=== PATIENT | male | born 1995 | race Caucasian/White ===

== ENCOUNTER 2025-07-31 12:36 | Outpatient (AMB) | payer OTHER, SELFPAY ==
--- NOTE | 2025-07-31 12:51 | MHC.PC.OV ---
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 Intake Note: Jefferson is a new patient that presents with left shoulder pain Drier Required: No Accompanied by: Self / Same As Patient Allergies radioactive dye Allergy (Intermediate, Uncoded 07/31/25 12:56) Hives Medication List - Last Reconciled 07/31/25 by Mamadou Zabala MD No Known Home Meds Tobacco use date assessed: 07/31/25 Dental Screening Dental Screen Date: 07/31/25 Did you have a dental visit in the last 12 months?: Yes Did you have a dental problem in the last 6 months where you did not have access to dental care?: No Was dental information given to patient?: Patient has dentist HPI HPI Comments History of Present Illness Details History of Present Illness The patient is a 30 year old individual presenting for a wellness check and evaluation of chronic left shoulder pain. Chronic Left Shoulder Pain: The patient reports left shoulder pain that has been present for approximately three to four years, starting during a previous job. The patient believes the injury occurred while lifting excessive weight at the gym, at which time the patient felt a pop. The pain is described as a constant, dull ache rated at a 4 or 5 out of 10, with occasional episodes of sharp pain during normal activities. The pain does not radiate and is aggravated by lying on the left side and performing fast, wide movements with the arm. Arm exercises provide some temporary relief, but the pain always returns. The patient previously saw a nurse practitioner who recommended exercises to avoid physical therapy or surgery but did not follow up due to difficulty scheduling appointments and frustration with the healthcare system. Insomnia: The patient reports intermittent difficulty falling asleep. 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 The patient reports a family history of sleep issues, with the patient's mother and brother also experiencing them. Hematochezia: The patient reports occasionally noticing small amounts of blood on the toilet paper when wiping. This occurs intermittently, with the last episode maybe a month or two prior. The patient denies being constipated currently but had one episode in the past that required medication. Surgical History: - None reported. Medications: - The patient is not on any current medications. - The patient took medication for constipation previously, but this was a while ago. 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 - Alcohol Use: Drinks with friends a couple of times a month. - Tobacco/Drug Use: Smokes marijuana once or twice a year; no other drug use mentioned. - Sexual History: Not recently sexually active as the patient's girlfriend is currently in the [facility]. - Insurance: Reports a history of being on and off Truveris, which has created barriers to care. Family History: - Paternal history is unknown. - Maternal grandfather: Suspected alcohol abuse (undiagnosed) and prediabetes. - Mother: History of mental health issues including anxiety, has been hospitalized, and takes medication. Also has sleep issues. - Maternal aunt: History of mental health issues. - Maternal grandmother: Breast cancer. - Brother: History of sleep issues. Diagnostic Results: - Vital Signs: Noted to be good, with good blood pressure. Past Medical History - No significant past medical history reported. - History of constipation in the past requiring medication. Health Maintenance - Comprehensive baseline labs will be obtained, including a CBC, CMP, hemoglobin A1c, lipid panel, hepatitis B/C and HIV screen, syphilis screen, thyroid panel, urinalysis, vitamin B12, folate, and vitamin D. - The patient will follow up in two weeks to review all lab and imaging results. [facility] Medical History (Updated 07/31/25 @ 15:31 by Mamadou Zabala MD) Hematochezia Insomnia Left shoulder pain Family History (Updated 07/31/25 @ 12:59 by Ruben Donahue CMA) Maternal Grandfather Substance abuse Diabetes Mother FH: mental illness Maternal Aunt FH: mental illness Maternal Grandmother Breast cancer Social History (Updated 07/31/25 @ 13:00 by Ruben Donahue CMA) Housing: House Alcohol intake: current Comment: Ocasionally Patient Tobacco Use Status: Never used Tobacco e-Cigarette/Vaping Use: Never Used Second Hand Smoke Exposure: No Substance Use Type: Marijuana service: No Current occupational status: employed 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 1. Little interest or pleasure in doing things: not at all 2. Feeling down, depressed, or hopeless: not at all 3. Trouble falling or staying asleep, or sleeping too much: several days 4. Feeling tired or having little energy: not at all 5. Poor appetite or overeating: not at all 6. Feeling bad about yourself - or that you are a failure or have let yourself or your family down: not at all 7. Trouble concentrating on things, such as reading the newspaper or watching television: not at all 8. Moving or speaking so slowly that other people could have noticed. Or the opposite - being so fidgety or restless that you have been moving around a lot more than usual: not at all 9. Thoughts that you would be better off or of hurting yourself in some way: not at all Total score: 1 Depression Screening Interpretation: Negative Depression Screening Done: Yes 88340 - PHQ-9 Billing: Yes Source: Developed by Drs. Eulogio Jerry, Malissa More, Tyrone Guajardo and colleagues, with an educational joao from [employer]. Thrive Questionnaire Date Thrive assessed: 07/31/25 I am a: Patient What is your living situation today?: I have a steady place to live Within the past 12 months, did the food you bought not last and you didn't have the money to get more?: Never true Within the past 12 months, did you worry whether your food would run out before you got money to buy more?: Never true Do you have trouble paying for medicines?: No Do you have trouble getting transportation to medical appointments?: No Do you have trouble paying your heating and electricity bill?: No Do you have trouble taking care of your child, family member or friend?: No Are you currently unemployed and looking for a job?: No Are you interested in more education?: Yes Please select the resources that you would like help with: None Currently or been in a relationship where the following occur: No concerns reported THRIVE Score: 0 AUDIT C Alcohol Use Questionnaire (AUDIT-C) 1. How often do you have a drink containing alcohol?: Monthly or less 2. How many drinks containing alcohol do you have on a typical day when you are drinking?: 1 or 2 3. How often do you have six or more drinks on one occasion?: Never Total Score: 1 LORI-7 AMB Questionnaire LORI-7 Date LORI - 7 assessed: 07/31/25 Feeling nervous, anxious, or on edge: 1 = Several days Not being able to stop or control worryin = Several days Worrying too much about different things: 1 = Several days Trouble relaxin = Not at all Being so restless that it is hard to sit still: 0 = Not at all Becoming easily annoyed or irritable: 0 = Not at all Feeling afraid as if something awful might happen: 0 = Not at all Total LORI-7 score (0-4 normal; 5-9 mild; 10-14 moderate; 15-21 severe): 3 Source: Developed by Drs. Eulogio Jerry, Malissa More, Tyrone Guajardo and colleagues, with an educational joao from [employer]. Review of Systems Narrative Review of Systems - Musculoskeletal: Reports chronic, dull left shoulder pain (4-5/10), aggravated by lying on the side and fast movements, with intermittent sharp pains. - Neurological: Denies radiating pain from the shoulder. - Gastrointestinal: Reports intermittent small amounts of blood on toilet paper when wiping; denies current constipation. - Sleep: Reports intermittent difficulty falling asleep. - Psychiatric: Reports feeling stressed due to a new job. 10-point ROS reviewed and negative except as noted in HPI Physical exam (Primary Care) Vital Signs: Last Vital Signs Temp 98.2 F 07/31/25 13:00 Pulse 79 07/31/25 13:00 Resp 18 07/31/25 13:00 BP 127/86 07/31/25 13:00 Pulse Ox 99 07/31/25 13:00 Oxygen Delivery Method Room Air 07/31/25 13:00 BMI result Body Mass Index 25.8 Tobacco/Smoking Status: Tobacco use Status Tobacco use date assessed 07/31/25 07/31/25 13:02 Patient Tobacco Use Status Never used Tobacco 07/31/25 13:02 e-Cigarette/Vaping Use Never Used 07/31/25 13:02 PHQ-9: PHQ-9 Score PHQ-9: Total score 1 07/31/25 13:02 Depression Screening Interpretation: Negative Thrive Assessment: Date of Thrive Assessment Date Thrive assessed 07/31/25 07/31/25 12:53 Currently or been in a relationship where the following occur: No concerns reported Narrative Physical Exam General: Well-appearing, in no acute distress. Vital signs: Blood pressure looks good, vital signs look good. HEENT: Normocephalic, atraumatic. PERRLA, EOMI. Conjunctiva clear, sclera anicteric. Oropharynx clear, mucous membranes moist. TMs intact bilaterally. Neck: Supple, no lymphadenopathy, no thyromegaly, no JVD or carotid bruits. Cardiovascular: RRR, normal S1/S2, no murmurs, rubs, or gallops. Peripheral pulses 2+ and symmetric. No edema. Respiratory: Lungs clear to auscultation bilaterally, no wheezes, rales, or rhonchi. Normal effort. Abdomen: Soft, non-tender, non-distended. Normoactive bowel sounds. No hepatosplenomegaly, no masses. MSK: Full range of motion, no joint swelling or deformity. Normal gait. Left shoulder pain reported, with a history of discomfort for 3-4 years, exacerbated by laying on the side and fast, wide movements. Skin: Warm, dry, intact. No rashes, lesions, or pallor. Neuro: Alert and oriented x3. Cranial nerves II-XII intact. Strength 5/5 throughout. Sensation intact. Reflexes 2+ symmetric. Normal coordination and gait. Psych: Appropriate mood and affect. Normal judgment and insight. Reports occasional sleep disturbances, possibly stress-related. Coding Level of Care Code New Pt Level 4 (57007) Diagnoses Left shoulder pain M25.512 Insomnia G47.00 Hematochezia K92.1 Additional Codes PHQ-9 - 49378 - PHQ-9 Billing: Yes ([id number]) Assessment & Plan Assessment & Plan (1) Left shoulder pain: Code(s): M25.512 - Pain in left shoulder Category: Medical (2) Insomnia: Code(s): G47.00 - Insomnia, unspecified Category: Medical (3) Hematochezia: Code(s): K92.1 - Melena Category: Medical Plan Consent The plan for baseline blood work, a left shoulder X-ray, and a referral to physical therapy was discussed with the patient. The patient verbally agreed to the proposed diagnostic and therapeutic plan. Patient was informed and verbally consented to the use of an ambient scribe for clinic note documentation during this visit. Plan 1. Chronic Left Shoulder Pain - An X-ray of the left shoulder will be ordered to assess for underlying pathology. - A referral will be placed for physical therapy. 2. Hematochezia - The likely differential includes hemorrhoids or an anal fissure. - The patient was instructed to monitor for recurrence and to report if it happens again. 3. Insomnia - The patient does not feel this is a significant issue at present. - The current plan is to monitor symptoms. Discussion Notes I had a detailed discussion with the patient regarding the plan for this initial visit. I explained the rationale for ordering comprehensive baseline labs, which include a CBC, CMP to check liver and kidney function, a hemoglobin A1c to screen for diabetes, a lipid panel, and screenings for infectious diseases such as hepatitis, HIV, and syphilis. For the chronic shoulder pain, I explained that an X-ray would be ordered and a referral made to physical therapy. I informed the patient that the imaging department would call to schedule the X-ray and to contact them if no call is received within one to two weeks. Regarding the intermittent blood on the toilet tissue, I explained that this is likely from hemorrhoids or a fissure and instructed the patient to inform me if it recurs. We agreed on a follow-up appointment in two weeks to go over all the results. Patient Instructions - Please go to the lab to have your blood drawn today. - An X-ray of your left shoulder has been ordered. The radiology department will call you to schedule it. If you do not hear from them within 1-2 weeks, please call them to follow up. - A referral has been made for physical therapy. - If you notice blood on the toilet paper again, please let me know. - Please schedule a follow-up appointment in two weeks to review your results. Medical Decision Making The patient is a 30-year-old individual presenting for a new patient wellness visit and evaluation of chronic left shoulder pain. The primary complaint of left shoulder pain, ongoing for 3-4 years since a possible lifting injury, is suspicious for a chronic musculoskeletal issue, such as a rotator cuff tendinopathy or tear, given the history of a pop and pain with specific movements. An initial X-ray is warranted to rule out osseous abnormalities, and a physical therapy referral is appropriate for conservative management. The patient also reports intermittent hematochezia, described as small amounts of blood on toilet paper. Given the intermittent nature and lack of associated symptoms like significant pain or constipation, this is most likely from external hemorrhoids or a minor anal fissure. The management plan is watchful waiting with patient education to report recurrence. As this is an initial comprehensive visit, baseline health screening labs are indicated. This includes a CBC, CMP, lipid panel, and screenings for common infectious diseases. A hemoglobin A1c is particularly relevant given the family history of prediabetes. A follow-up in two weeks will be critical to review all diagnostic results and establish an ongoing plan of care. Total Time Statement 30 MIN Total time spent caring for the patient today includes pre-visit chart review, documentation, review of laboratory and diagnostic imaging results, medication reconciliation, medically necessary evaluation, counseling on diagnoses, care coordination, ordering appropriate tests and medications, review of tests performed by other providers, reporting test results to the patient, and communication with other healthcare providers. Orders: Orders Complete Blood Count Auto Diff Today Z13.9 - Encounter for screening, unspecified Hepatitis B Surface Antigen Today Z13.9 - Encounter for screening, unspecified Hepatitis C Antibody Today Z13.9 - Encounter for screening, unspecified HIV Ab/Ag Today Z13.9 - Encounter for screening, unspecified Vitamin B12 and Folate Today Z13.9 - Encounter for screening, unspecified Hemoglobin A1c Today Z13.9 - Encounter for screening, unspecified Vitamin D 1,25 dihydroxy Today Z13.9 - Encounter for screening, unspecified Hepatitis B Surface Antibody Today Z13.9 - Encounter for screening, unspecified Syphilis Screen Today Z13.9 - Encounter for screening, unspecified Comprehensive Met. Panel Today Z13.9 - Encounter for screening, unspecified TSH reflex Free T4 Today Z13.9 - Encounter for screening, unspecified UA CC w/rflx Micro + Cult Today Z13.9 - Encounter for screening, unspecified Lipid Panel Today Z13.9 - Encounter for screening, unspecified Magnesium Today Z13.9 - Encounter for screening, unspecified PT Evaluation and Treatment Today M25.512 - Pain in left shoulder XR shoulder LT min 2V Today M25.512 - Pain in left shoulder
[2025-07-31 13:00] VITALS: BP 127/86; PULSE 79; RESP 18; TEMP 36.8; O2SAT 99; BMI 25.8
--- OUTSIDE RECORDS SUMMARY | 2025-07-31 14:32 | XMS_ITS | Clinical Summary ---
Author Organization [facility] Address [address] [place] [id number] Phone Care Team Providers Care Brusher Machine Name Role Phone Unavailable Primary Care Provider Unavailabl e Allergies No known active allergies Medications No known medications Active Problems Problem Noted Date Diagnosed Date Flat foot 09/11/2016 Sensorineural hearing loss (SNHL) of both ears 0 10/01/2010 Overview (09/08/2017): Mild stable mid range hearing loss-- previously followed at [facility]-- has not been seen in a few years-- not intervention needed. Resolved Problems Problem Noted Date Diagnosed Date Resolved Date Pain in joint, shoulder region 09/11/2016 09/08/2017 Immunizations Immunization Administration Dates Next Due DTaP / HiB / IPV 01/09/2000,07/17/1996 DTaP 5 1995,1995,1995 H1N1 05/13/2009 HPV Vaccine 9 Valent 09/11/2016 HPV, Quadrivalent 08/24/2014,08/02/2013 Hep B, ped/adol 1995,1995,1995 Hib (PRP-T) 04/17/1996, 5,1995,03/19 IPV 01/09/2000 Influenza 09/05/2013 Influenza, injectable, quadrivalent 09/11/2016 Influenza, injectable, triva lent, preservative free 08/24/2014 Influenza, intranasal, trivalent 016,06/13/2013,07/11/2012,05/29,05/20/2010 MMR 01/09/2000,01/07/1999,04/17/1996 Meningococcal Conj (Menactra) MCV4P 05/29/2011,0 04/21/2007 OPV 1995,1995,1995 PPD Test 1995 Td (adult) (MBL), 2 Lf tetan us toxoid, PF, adsorbed 09/06/2015 Tdap 04/20/2006 Varicella 04/05/2009,01/14/1996 Social History Tobacco Use Types Packs/Day Years Used Date Smoking Tobacco: Never Comments:Never Smoker Sex and Gender Information Value Date Recorded Sex Assigned at Not on file Legal Sex Male 4:11 PM EST Gender Identity Not on file Sexual Orientation Not on file Last Filed Vital Signs Vital Sign Reading Time Taken Comments Blood Pressure 98/70 09/08/2017 1:52 PM EST Pulse - - Temperature 36.8 C (98.2 F) 09/13/2014 2:20 PM EST Respiratory Rate - - Oxygen Saturation 99% 09/13/2014 2:26 PM EST Inhaled Oxygen Concentration - - Weight 72.6 kg (160 lb) 09/08/2017 1:52 PM EST Height 172.7 cm (5' 8 ) 09/08/2017 1:52 PM EST Body Mass Index 24.33 09/08/2017 1:52 PM EST Plan of Treatment Health Maintenance Due Date Last Done Comments Influenza Vaccines (#1) 2025 09/11/19 17, 09/06/2015, 08/24/2014, Additional history exists COVID-19 Vaccine ( season) 2025 DTaP,Tdap,and Td Vaccines (8 - Td or Tdap) 09/06/2025 09/06/2015, 04/20/2006, 01/09/2000, Additional history exists Hepatitis B Vaccines Completed 1995, 1995, 1995 HIB Vaccines Completed 01/09/2000, 06/30, 04/17/1996, Additional history exists IPV Vaccines Completed 01/09/2000, 12/28, 07/17/1996, Additional history exists MMR Vaccines Completed 01/09/2000, 12/28, 04/17/1996 Varicella Vaccines Completed 04/05/2009, 01/14/1996 Meningococcal Vaccine Completed 05/29/2011, 007 HPV Vaccines Completed 09/11/2016, 07/31, 08/02/2013 Hepatitis A Vaccines Aged Out No long er eligible based on patient's age to complete this topic Men B Vaccine Aged Out No longer elig ible based on patient's age to complete this topic Pneumococcal Vaccine Aged Out No long er eligible based on patient's age to complete this topic Insurance [facility] PPO
--- OUTSIDE RECORDS SUMMARY | 2025-07-31 14:32 | XMS_ITS | Encounter Summary ---
Author Organization [facility] Address [address] [place] [id number] Phone Care Team Providers Care Power Transformer Inspector Name Role Phone Mango eTna MD Primary Care Provider Valentino tanner Encounter Details Date Type Department Care Team (Late st Contact Info) Description 08/02/2013 Nurse Only [facility] [place] [id number] Social History Tobacco Use Types Packs/Day Years Used Date Smoking Tobacco: Never Comments:Never Smoker Sex and Gender Information Value Date Recorded Sex Assigned at Not on file Legal Sex Male 4:11 PM EST Gender Identity Not on file Sexual Orientation Not on file documented as of this encounter Nursing Notes * UNKNOWN, HISTORICAL - 08/02/2013 10:20 AM EST [place] 1995 NURSE NOTE/VERBAL ORDERS Office/Outpatient Visit Visit Date: Aug 02, 2013 10:20 am Provider: Priscila Cody LPN (Flush Tester: Magali Fox MD) Location: [facility]. ECTIVE: CC: Patient enters alone He is here for immunization. HPI: There are no signs or symptoms of illness.. Denies any problems with previous vaccinations. PMH/FMH/SH: Past Medical History: HM since 2009 Mild hearing loss ( mid range) 05/09 Overweight: dx'd in 2010; CURRENT MEDICAL PROVIDERS: Audiology: [facility] Social History: [employer] freshman - fall 2012 Dad now living in [place]. Family members: Parent: Denver Wasserman Parent: Bhumi Wasserman, mother Siblings: Hadrian - 01/06/1996 - Parents' Marital Status: . He lives with his mother and has occasional contact with his father. Hobbies and recreational interests include sports ( basketball, soccer ). Tobacco/Alcohol/Supplements: ... Last Reviewed on 07/11/2012 2:35:40 PM by Shelley Donovan Tobacco: He has never smoked. Communicable Diseases (eg STDs): Cholesterol: (146) 06/16/13 Hgb: (13.9) 12/04/11 Hct: (40.7) 12/04/11 Current Problems: Acne Overweight Sensorineural hearing loss, bilateral Current Medications: Last Reviewed on 06/13/2013 9:53:19 AM by Priscila Cody Clinda-Derm 1% Topical Solution Apply thin film to affected once a day in the morning. Tretinoin 0.025% Cream Apply thin film at bedtime to clean, dry skin. Start every other day. ASSESSMENT: V70.0 HM: Immunizations only ORDERS: Procedures Ordered: Human Papilloma virus (HPV) vaccine, types 6, 11, 16, 18 (quadrivalent), 3 dose schedule, for intram (In-House) PLAN: HM: Immunizations only IMMUNIZATIONS: Gardisil (HPV) was given at todays visit. Informed Consent: ( Given Verbal ) Return in 4-8 weeks for next update. Patient tolerated injection(s) well. Left office in good condition. Orders: Human Papilloma virus (HPV) vaccine, types 6, 11, 16, 18 (quadrivalent), 3 dose schedule, for intram (In-House) Patient Recommendations: For HM: Immunizations only: Immunizations for Todays isit; ^ HPV (Given) CHARGE CAPTURE: Primary Diagnosis: V70.0 HM: Immunizations only Orders: [id number] Human Papilloma virus (HPV) vaccine, types 6, 11, 16, 18 (quadrivalent), 3 dose schedule, forintram (In-House) documented in this encounter Plan of Treatment Not on file documented as of this encounter Visit Diagnoses Not on filedocumented in this encounter Care Teams Power Transformer Inspector Relationship Specialty Start Date End Date Mango Tena MD PCP - General 10/19/16 03/02/19 documented as of this encounter
--- OUTSIDE RECORDS SUMMARY | 2025-07-31 14:32 | XMS_ITS | Encounter Summary ---
Author Organization [facility] Address [address] [place] [address] Phone Care Team Providers Care Auto Service Station Attendant Name Role Phone Mango Tena MD Primary Care Provider Valentino tanner Encounter Details Date Type Department Care Team (Late st Contact Info) Description 09/05/2013 Nurse Only [place] [facility], [address] [place] [address] Social History Tobacco Use Types Packs/Day Years Used Date Smoking Tobacco: Never Comments:Never Smoker Sex and Gender Information Value Date Recorded Sex Assigned at Not on file Legal Sex Male 4:11 PM EST Gender Identity Not on file Sexual Orientation Not on file documented as of this encounter Nursing Notes * UNKNOWN, HISTORICAL - 09/05/2013 3:36 PM EST [place] 1995 NURSE NOTE/VERBAL ORDERS Office/Outpatient Visit Visit Date: Sep 05, 2013 03:36 pm Provider: Priscila Cody LPN (Displayer: Nicole Ryan MD) Location: [facility]. ECTIVE: CC: He is here for the Flu Clinic. HPI: No known chronic health conditions. Fever or illness is not present today. No trouble breathing or hives after eating eggs He has not had a reaction to the flu vaccine or other immunization. Flu vaccine VIS was given today.(interim 03/24/13) There were no questions or concerns voiced at today's visit. PMH/FMH/SH: Past Medical History: HM since 2009 Mild hearing loss ( mid range) 9/10 Overweight: dx'd in 2010; CURRENT MEDICAL PROVIDERS: Audiology: [facility] Judge Social History: [employer] freshman - fall 2012 Dad now living in [place]. Family members: Parent: Denver Wasserman Parent: Bhumi Wasserman, mother Siblings: Camelia STEINBERG 01/06/1996 - Parents' Marital Status: . He [...] affected once a day in the morning. OBJECTIVE: Exams: GENERAL APPEARANCE: Alert, active, looks well, mood appropriate ASSESSMENT: V04.81 Flu Clinic ORDERS: Procedures Ordered: Flu Vaccine (In-House) Immunization administration (includes percutaneous, intradermal, subcutaneous or intramuscular injec (In-House) PLAN: Flu Clinic Influenza vaccine > 3 yr given No contraindications noted for flu vaccines. Tolerated well, left office in good condition. Orders: Flu Vaccine (In-House) Immunization administration (includes percutaneous, intradermal, subcutaneous or intramuscular injec (In-House) Patient Recommendations: For Flu Clinic: Influenza (Given) CHARGE CAPTURE: Primary Diagnosis: V04.81 Flu Clinic Orders: [id number] Flu Vaccine (In-House) 52143 Immunization administration (includes percutaneous, intradermal, subcutaneous or intramuscular injec (In-House) documented in this encounter Plan of Treatment Not on file documented as of this encounter Visit Diagnoses Not on filedocumented in this encounter Care Teams Auto Service Station Attendant Relationship Specialty Start Date End Date Mango Tena MD PCP - General 10/19/16 03/02/19 documented as of this encounter
== END 2025-07-31 13:18 | disposition home or self-care (01) ==
LOC: HO.HMCFMS 12:36
PROVIDERS: PCP Student in an Organized Health Care Education/Training Program; Visit Provider Student in an Organized Health Care Education/Training Program
DX: M25.512 Pain in left shoulder (principal); G47.00 Insomnia, unspecified; K92.1 Melena

== ENCOUNTER 2025-07-31 12:36 | Outpatient (REF) | payer OTHER, SELFPAY ==
--- OUTSIDE RECORDS SUMMARY | 2025-07-31 15:27 | XMS_ITS | Clinical Summary ---
Author Organization [facility] [employer] [facility] Address [address] [facility] [place] [address] Care Team Providers Care Industrial Tech Instructor Name Role Phone Unavailable Primary Care Provider Unavailabl e Immunizations Immunization Administration Dates Next Due Flulaval Trivalent Prefilled Syringe (18mos-18yr s) 06/17/2025 Pfizer Cominarty Covid-19 SDV (12+ yrs) 09/10/19 24 Social History Tobacco Use Types Packs/Day Years Used Date Smoking Tobacco: Never Assessed Sex and Gender Information Value Date Recorded Sex Assigned at Not on file Legal Sex Male 1:56 PM EST Gender Identity Not on file Sexual Orientation Not on file Plan of Treatment Health Maintenance Due Date Last Done Comments Depression: Screening Annually using PHQ-2/9 in Adults 18 yrs or above (or HM Modifier)([facility]) 2013 Hepatitis C Virus Infection in Adolescents and Adults: Screening (or Modifier) ([facility]) 2013 SDVT Screening Reminder: Annually for all adults ([facility]) 2013 Tobacco Smoking Cessation: i n Adults excluding Women: Behavioral and Pharmacotherapy Interventions ([facility]) 2013 COVID-19 Vaccine Screening: Initial Series and Booster Status ([facility]) (2 - 2024- season) 2025 09/10/2023 DTaP/Tdap/Td Vaccines ([facility]) (8 - Td or Tdap) 09/06/2025 09/06/2015, 04/20/2006, 01/09/2000, Additional history exists Zoster/Shingles Vaccine Series Screening: Adults aged 18+ yrs (or HM Modifiers)([facility]) (1 of 2) 2045 04/05/2009, 01/14/1996 Flu Vaccination: Yearly for ages 18mos through 64 years (or Modifier)([facility]) Completed 06/17/2025, 09/05/2013 Pneumococcal Vaccination Screening: Pts 0-19 & 19-49 yrs of age ([facility]) Aged Out No longer eligible based on patient's age to complete this topic Medical Devices Not on file [place] [id number]
[2025-07-31 17:49] LABS: Appearance Urine Clear; Glucose Urine UA Negative (Negative); PH 6.0 (5.0-9.0); Specific Gravity - Urine 1.025 (1.005-1.025)
[2025-07-31 17:52] LABS: MANUAL DIFF FLAG NO
[2025-07-31 18:09] LABS: Hematocrit 44.7 % (42.0-52.0); Hemoglobin 14.8 g/dl (14.0-18.0); Imm Gran Abs Auto 0.03 X10*3/uL (0.00-0.03); Imm Gran Pct Auto 0.4 % (0.0-0.4); Lymphocytes Absolute Auto 2.0 X10*3/uL (1.2-4.9); Mean Corpuscular HGB Conc 33.1 g/dl (31.0-36.0); Mean Corpuscular Hemoglobin 27.3 pg (27.0-33.0); Mean Corpuscular Volume 82.3 fL (80.0-98.0); NRBC Abs Auto 0.000 X10*3/uL (0.0-0.012); NRBC Pct Auto 0.0 /100WBC (0.0-0.2); Platelet Count 283 X10*3/uL (160-400); Red Blood Count 5.43 X10*6/uL (4.60-5.80); White Blood Count 8.1 X10*3/uL (4.8-10.8)
[2025-07-31 18:44] LABS: Alanine Aminotransferase 56 U/L (0-40); Albumin Level 5.1 g/dL (3.5-5.0); Alkaline Phosphatase 102 U/L (39-117); Anion Gap 15 (12-20); Aspartate Amino Transferase 36 U/L (5-37); Blood Urea Nitrogen 14 mg/dL (9-16); Calcium 9.6 mg/dL (8.4-10.2); Carbon Dioxide 25 mmol/L (22-29); Chloride 105 mmol/L (96-108); Cholesterol 201 mg/dL (<200); Estimated Glomerular Filt Rate > 60; HDL Cholesterol 66 mg/dL (>40); Magnesium 1.9 mg/dL (1.6-2.6); Potassium 3.8 mmol/L (3.3-5.1); Sodium 141 mmol/L (135-145); Total Protein 8.5 g/dL (6.5-8.0); Triglycerides 55 mg/dL (<150)
[2025-07-31 18:57] LABS: Folate 12.3 ng/mL (> or = 4.0); Vitamin B12 867 pg/mL (200-900)
[2025-08-01 04:49] LABS: Syphilis Screen Nonreactive (Nonreactive)
[2025-08-01 05:23] LABS: HBS Num1 18.34 mIU/mL (0-7.99); HBsAGNum1 0.40 S/CO (0.00-0.99); HIV Num 1 0.06 S/CO (0.00-0.99); Hepatitis B Surface Antigen Negative (Negative); ~HepC Num1 0.10 S/CO (0.00-0.79); ~Hepatitis B Surface Antibody REACTIVE (Nonreactive); ~Hepatitis C Antibody Nonreactive (Nonreactive)
[2025-08-05 14:13] LABS: VITAMIN D (1,25 OH) D3 50 pg/mL; Vit D (1,25-Dihydroxy) Total 50 pg/mL (18-72); Vitamin D (1,25 OH) D2 <8 pg/mL
== END 2025-07-31 12:37 | disposition home or self-care (01) ==
LOC: HO.HKASLDS 12:36
PROVIDERS: PCP Student in an Organized Health Care Education/Training Program; Visit Provider Student in an Organized Health Care Education/Training Program
DX: M25.512 Pain in left shoulder (principal); Z13.31 Encounter for screening for depression; Z13.39 Encounter for screening examination for other mental health and behavioral disorders; G47.00 Insomnia, unspecified; K92.1 Melena; Z13.1 Encounter for screening for diabetes mellitus; Z13.6 Encounter for screening for cardiovascular disorders
CPT/HCPCS: 36415; 80053; 80061; 81003; 82607; 82652; 82746; 83036; 83735; 84443; 85025; 86706; 86780; 86803; 87340; 87389; 96127

== ENCOUNTER 2025-08-14 15:41 | Outpatient (AMB) | payer OTHER, SELFPAY ==
--- NOTE | 2025-08-14 15:44 | A.OFFPC_ITS ---
Vital Signs 08/14/25 15:47 Height 5 ft 9.5 in Weight 181 lb 4 oz BMI 26.4 BP 135/81 Blood Pressure Location Rt brachial Position Sitting Respiration 17 Pulse 95 Pulse Source Pulse Oximeter Temp 97.5 F Temp Source Oral Pulse Oximetry (%) 97 Oxygen Delivery Method Room Air Intake Visit Reasons: 2 wk lab review Intake Note: Patient present for lab review. Criminal Court Judge Required: No Accompanied by: Self / Same As Patient Allergies radioactive dye Allergy (Intermediate, Uncoded 08/14/25 15:46) Hives Medication List - Last Reconciled 08/14/25 by Mamadou Zabala MD No Known Home Meds Tobacco use date assessed: 07/31/25 Dental Screening Dental Screen Date: 07/31/25 HPI HPI Comments History of Present Illness Details History of Present Illness The patient is a 30 year old male presenting with a follow-up visit to review lab results. Hypercholesterolemia: Lab results show a total cholesterol of 201, which was a non-fasting sample. The LDL cholesterol is 124, which would still be slightly over 100 after adjusting for the non-fasting state. The patient's HDL is high at 66, which is a positive finding. He reports eating a lot of fast food recently due to an inconsistent work schedule, and acknowledges this diet contains a lot of cheese. Elevated liver enzymes: Lab results show an elevated ALT of 56, with a cutoff of 40. This elevation may be correlated with his high cholesterol, suggesting possible fat storage in the liver. Social History: - Nutrition: The patient states he has b een eating a lot of fast food recently, which often contains cheese. - Exercise: He reports finding it hard t o go to the gym. - Employment: The patient has an inconsi stent work schedule. - Education: He is planning to start [employer] for a DO program in [place] in March. Diagnostic Results: - Complete Blood Count: White blood cell s, red blood cells, hemoglobin, hematocrit, and platelets are normal. - Comprehensive Metabolic Panel: Sodium, potassium, chloride, kidney function, calcium, and magnesium are normal. - Glucose: Random glucose and hemoglobin A1c are normal; patient is not prediabetic or diabetic. - Liver Function Test: ALT is elevated a t 56 (cutoff is 40). - Lipid Panel (non-fasting): Total alanna sterol is 201 (noted to be non-fasting), LDL is 124, and HDL is 66. - Vitamins: Vitamin B12 and Vitamin D le vels are good. - Thyroid: Thyroid function is normal. - Folate: Folate level is good. - Urinalysis: Normal. - Infectious Disease Screen: Syphilis, h epatitis B, hepatitis C, and HIV are negative. Past Medical History Health Maintenance - Screening labs results were reviewed. - Discussed lifestyle changes for hyperc holesterolemia, including dietary modifications such as reducing intake of eggs and cheese, and improving diet from fast food. - Recommended follow-up in six months. [facility] Medical History (Updated 08/14/25 @ 16:38 by Mamadou Zabala MD) Overweight (BMI 25.0-29.9) Elevated liver enzymes Hypercholesterolemia Hematochezia Insomnia Left shoulder pain Family History Maternal Grandfather Substance abuse Diabetes Mother FH: mental illness Maternal Aunt FH: mental illness Maternal Grandmother Breast cancer Social History Housing: House Alcohol intake: current Comment: Ocasionally Patient Tobacco Use Status: Never used Tobacco e-Cigarette/Vaping Use: Never Used Second Hand Smoke Exposure: No Substance Use Type: Marijuana service: No Current occupational status: employed 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 [employer] Current occupational exposures/hazards: No Cognitive needs: No Hearing needs: No Vision needs: No Questionnaire Thrive Questionnaire Date Thrive assessed: 07/31/25 I am a: Patient What is your living situation today?: I have a steady place to live Within the past 12 months, did the food you bought not last and you didn't have the money to get more?: Never true Within the past 12 months, did you worry whether your food would run out before you got money to buy more?: Never true Do you have trouble paying for medicines?: No Do you have trouble getting transportation to medical appointments?: No Do you have trouble paying your heating and electricity bill?: No Do you have trouble taking care of your child, family member or friend?: No Do you have trouble with day-to-day activities such as bathing, preparing meals, shopping, managing finances, etc.?: No Are you currently unemployed and looking for a job?: No Are you interested in more education?: Yes Please select the resources that you would like help with: None Currently or been in a relationship where the following occur: No concerns reported THRIVE Score: 0 LORI-7 AMB Questionnaire LORI-7 Date LORI - 7 assessed: 07/31/25 Source: Developed by Drs. Eulogio Jerry, Malissa More, Tyrone Guajardo and colleagues, with an educational joao from [employer]. Review of Systems Narrative Review of Systems - General: Reports feeling pretty good. 10-point ROS reviewed and negative except as noted in HPI Physical exam (Primary Care) Vital Signs: Last Vital Signs Temp 97.5 F 08/14/25 15:47 Pulse 95 08/14/25 15:47 Resp 17 08/14/25 15:47 BP 135/81 08/14/25 15:47 Pulse Ox 97 08/14/25 15:47 Oxygen Delivery Method Room Air 08/14/25 15:47 BMI result Body Mass Index 26.4 Tobacco/Smoking Status: Tobacco use Status Tobacco use date assessed 07/31/25 08/14/25 15:44 Patient Tobacco Use Status Never used Tobacco 08/14/25 15:44 e-Cigarette/Vaping Use Never Used 08/14/25 15:44 Thrive Assessment: Date of Thrive Assessment Date Thrive assessed 07/31/25 08/14/25 15:44 Currently or been in a relationship where the following occur: No concerns reported Narrative Physical Exam General: Well-appearing, in no acute distress. Vital signs: Within normal limits. HEENT: Normocephalic, atraumatic. PERRLA, EOMI. Conjunctiva clear, sclera anicteric. Oropharynx clear, mucous membranes moist. TMs intact bilaterally. Neck: Supple, no lymphadenopathy, no thyromegaly, no JVD or carotid bruits. Cardiovascular: RRR, normal S1/S2, no murmurs, rubs, or gallops. Peripheral pulses 2+ and symmetric. No edema. Respiratory: Lungs clear to auscultation bilaterally, no wheezes, rales, or rhonchi. Normal effort. Abdomen: Soft, non-tender, non-distended. Normoactive bowel sounds. No hepatosplenomegaly, no masses. MSK: Full range of motion, no joint swelling or deformity. Normal gait. Skin: Warm, dry, intact. No rashes, lesions, or pallor. Neuro: Alert and oriented x3. Cranial nerves II-XII intact. Strength 5/5 throughout. Sensation intact. Reflexes 2+ symmetric. Normal coordination and gait. Psych: Appropriate mood and affect. Normal judgment and insight. Coding Level of Care Code Est Pt Level 3 (49357) Add On Problem Visit Only Diagnoses Hypercholesterolemia E78.00 Elevated liver enzymes R74.8 Left shoulder pain M25.512 Overweight (BMI 25.0-29.9) E66.3 Assessment & Plan Assessment & Plan (1) Hypercholesterolemia: Code(s): E78.00 - Pure hypercholesterolemia, unspecified Category: Medical (2) Elevated liver enzymes: Code(s): R74.8 - Abnormal levels of other serum enzymes Category: Medical (3) Left shoulder pain: Code(s): M25.512 - Pain in left shoulder Category: Medical (4) Overweight (BMI 25.0-29.9): Code(s): E66.3 - Overweight Category: Medical Plan Consent Patient was informed and verbally consented to the use of an ambient scribe for clinic note documentation during this visit. Plan 1. Hypercholesterolemia - The patient's elevated LDL cholesterol is noted; his HDL is favorably high. - The patient was counseled on lifestyle modifications to lower cholesterol, including dietary changes like reducing consumption of cheese and fast food. - Since the patient is young, it is expected that these changes can correct the issue without medication. 2. Elevated Liver Enzymes - The patient's ALT is mildly elevated at 56. - This is likely correlated to his hypercholesterolemia and potential fat storage in the liver. - This is expected to improve with the same lifestyle changes recommended for his cholesterol. 3. Follow-Up - Recommended follow-up in six months to re-check labs. Discussion Notes I reviewed the lab results with the patient. I noted that while most results were normal, his ALT was slightly elevated and his LDL cholesterol was high. I explained the correlation between high cholesterol and elevated liver enzymes, suggesting that fat storage in the liver could be causing it to work harder. We discussed that these numbers are not excessively high and can be addressed with simple lifestyle changes, especially given the patient's young age. I encouraged him to be mindful of his diet, particularly his intake of fast food and cheese. I also pointed out his favorably high HDL cholesterol. I recommended a follow-up visit in six months to monitor these values. We also discussed his upcoming transition to graduate school and confirmed that our practice accepts his future insurance ([employer]). Patient Instructions - Your lab results were mostly good, but show high bad cholesterol (LDL) and a slightly elevated liver enzyme (ALT). - The high cholesterol can cause fat to build up in your liver, which may be why the liver enzyme is high. - To help lower your cholesterol, focus on lifestyle changes. Try to reduce your intake of fast food and foods high in cholesterol like cheese. - Your good cholesterol (HDL) is very high, which is excellent. - All other tests, including for diabetes, kidney function, and infections, were normal. - Please schedule a follow-up appointment in six months to recheck your labs. Medical Decision Making The patient is a healthy 30-year-old male here for a review of his recent laboratory results. The lares findings are a mildly elevated ALT and hypercholesterolemia, specifically an elevated LDL, in the context of an otherwise normal metabolic and hematologic profile. The elevated ALT is most likely non-alcoholic fatty liver changes secondary to his diet and hypercholesterolemia, as there is a known correlation. Given his young age and the mild nature of these elevations, the most appropriate initial management is counseling on lifestyle and dietary modification. The patient's diet, which he reports as high in fast food, is the likely package delivery driver of his dyslipidemia. I am reassured by his high HDL, which is protective. Pharmacotherapy is not indicated at this time. The plan is to follow up in six months to reassess his lipid panel and liver function tests to monitor for improvement following these recommended lifestyle changes. Total Time Statement 20 min Total time spent caring for the patient today includes pre-visit chart review, documentation, review of laboratory and diagnostic imaging results, medication reconciliation, medically necessary evaluation, counseling on diagnoses, care coordination, ordering appropriate tests and medications, review of tests performed by other providers, reporting test results to the patient, and communication with other healthcare providers.
[2025-08-14 15:47] VITALS: BP 135/81; PULSE 95; RESP 17; TEMP 36.4; O2SAT 97; BMI 26.4
--- OUTSIDE RECORDS SUMMARY | 2025-08-14 19:49 | XMS_ITS | Clinical Summary ---
Author Organization [facility] Address [address] [place] [phone] Phone Care Team Providers Care Flight Operations Coordinator Name Role Phone Unavailable Primary Care Provider Unavailabl e Allergies No known active allergies Medications No known medications Active Problems Problem Noted Date Diagnosed Date Flat foot 09/11/2016 Sensorineural hearing loss (SNHL) of both ears 0 10/01/2010 Overview (09/08/2017): Mild stable mid range hearing loss-- previously followed at [facility]-- has not been seen in a few [...] patient's age to complete this topic Insurance [employer]
--- OUTSIDE RECORDS SUMMARY | 2025-08-14 19:49 | XMS_ITS | Clinical Summary ---
Author Organization [facility] [employer] [facility] Address [address] [facility] [place] [address] Care Team Providers Care Cribber Name Role Phone Unavailable Primary Care Provider [...] Adults 18 yrs or above (or HM Modifier)([facility]) 2013 Hepatitis C Virus Infection in Adolescents and Adults: Screening (or Modifier) ([facility]) 2013 SDMA Screening Reminder: Annually for all adults ([facility]) 2013 Tobacco Smoking Cessation: i n Adults excluding Women: Behavioral and Pharmacotherapy Interventions ([facility]) 2013 COVID-19 Vaccine Screening: Initial Series and Booster Status ([facility]) (2 - 2024- season) 2025 09/10/2023 DTaP/Tdap/Td Vaccines ([facility]) (8 - Td or Tdap) 09/06/2025 09/06/2015, 04/20/2006, 01/09/2000, Additional history exists Zoster/Shingles Vaccine Series Screening: Adults aged 18+ yrs (or HM Modifiers)([facility]) (1 of 2) 2045 04/05/2009, 01/14/1996 Flu Vaccination: Yearly for ages 18mos through 64 years (or Modifier)([facility]) Completed 06/17/2025, 09/05/2013 Pneumococcal Vaccination Screening: Pts 0-19 & 19-49 yrs of age ([facility]) Aged Out No longer eligible based on patient's age to complete this topic Medical Devices Not on file [place] [address] [place] [id number]
--- OUTSIDE RECORDS SUMMARY | 2025-08-14 19:49 | XMS_ITS | Encounter Summary ---
Author Organization [facility] Address [address] [place] [phone] Phone Care Team Providers Care Screw Driver Operator Name Role Phone Mango Tena MD Primary Care Provider Valentino tanner Encounter Details Date Type Department Care Team (Late st Contact Info) Description 09/05/2013 Nurse Only [place] [facility], [address] [place] [address] Social History Tobacco Use Types Packs/Day Years [...] 2013 03:36 pm Provider: Priscila Cody LPN (Cracking Machine Operator: Nicole Ryan MD) Location: [facility]. ECTIVE: CC: He is here for the [...] - fall 2012 Dad now living in [place]. Family members: Parent: Denver Wasserman Parent: Bhumi [...] CAPTURE: Primary Diagnosis: V04.81 Flu Clinic Orders: [id number] Flu Vaccine (In-House) 27837 Immunization administration (includes percutaneous, intradermal, subcutaneous or intramuscular injec (In-House) documented in this encounter Plan of Treatment Not on file documented as of this encounter Visit Diagnoses Not on filedocumented in this encounter Care Teams Screw Driver Operator Relationship Specialty Start Date End Date Mango Tena MD PCP - General 10/19/16 03/02/19 documented as of this encounter
--- OUTSIDE RECORDS SUMMARY | 2025-08-14 19:49 | XMS_ITS | Encounter Summary ---
Author Organization [facility] Address [address] [place] [phone] Phone Care Team Providers Care Tax Attorney Name Role Phone Mango Tena MD Primary Care Provider Valentino tanner Encounter Details Date Type Department Care Team (Late st Contact Info) Description 08/02/2013 Nurse Only [facility] [place] [address] Social History Tobacco Use Types Packs/Day Years [...] 2013 10:20 am Provider: Priscila Cody LPN (Balance Bridge Assembler: Magali Fox MD) Location: [facility]. ECTIVE: CC: Patient enters alone He is here for immunization. HPI: There are no signs or symptoms of illness.. Denies any problems with previous vaccinations. PMH/FMH/SH: Past Medical History: HM since 2009 Mild hearing loss ( mid range) 05/09 Overweight: dx'd in 2010; CURRENT MEDICAL PROVIDERS: Audiology: [facility] Social History: [employer] freshman - fall 2012 Dad now living in [place]. Family members: Parent: Denver Wasserman Parent: Bhumi [...] Primary Diagnosis: V70.0 HM: Immunizations only Orders: [id number] Human Papilloma virus (HPV) vaccine, types 6, 11, 16, 18 (quadrivalent), 3 dose schedule, forintram (In-House) documented in this encounter Plan of Treatment Not on file documented as of this encounter Visit Diagnoses Not on filedocumented in this encounter Care Teams Tax Attorney Relationship Specialty Start Date End Date Mango Tena MD PCP - General 10/19/16 03/02/19 documented as of this encounter
== END 2025-08-14 15:59 | disposition home or self-care (01) ==
LOC: HO.HMCFMS 15:42
PROVIDERS: PCP Student in an Organized Health Care Education/Training Program; Visit Provider Student in an Organized Health Care Education/Training Program
DX: E78.00 Pure hypercholesterolemia, unspecified (principal); R74.8 Abnormal levels of other serum enzymes; M25.512 Pain in left shoulder; E66.3 Overweight